=== PATIENT | female | born 1995 | race African-American/Black ===

== ENCOUNTER 2017-02-19 19:30 | Emergency (ER) | payer OTHER, MEDICARE ==
[~2017-02-19] VITALS: Ht 172.7 cm; Wt 65.0 kg
[2017-02-19 19:39] VITALS: BP 128/83; PULSE 104; RESP 18; TEMP 98.1; O2SAT 98
[2017-02-19] MEDS ORDERED: TETANUS/DIPHTHERIA TOXOID ADULT 0.5 ML VIAL IM ONE (20:30)
[2017-02-19] MEDS ORDERED: CYCL1TAB29 PO (20:35)
[2017-02-19] MEDS ORDERED: NAPR500 PO (20:35)
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
[2017-02-19 20:52] VITALS: BP 126/74; TEMP 98.5
== END 2017-02-19 20:53 | disposition home or self-care (01) ==
LOC: NEPB 19:30
DX: S09.90XA Unspecified injury of head, initial encounter (principal); S00.81XA Abrasion of other part of head, initial encounter; V43.52XA Car driver injured in collision with other type car in traffic accident, initial encounter; Y93.89 Activity, other specified; Y92.410 Unspecified street and highway as the place of occurrence of the external cause; Z23 Encounter for immunization
CPT/HCPCS: 90471; 90714